=== PATIENT | male | born 1980 | race Caucasian/White ===

== ENCOUNTER 2018-07-16 16:49 | Emergency (ER) | payer BC ==
[2018-07-16] MEDS ORDERED: Sodium Chloride 0.9% 1,000 ML IV ONE (17:30)
[2018-07-16 17:52] LABS: BASO % 0.3 % (0.0-2.0); EOS # 0.1 K/uL (0.0-0.7); EOS % 2.9 % (0.0-4.0); HEMOGLOBIN 15.3 g/dL (12.0-18.0); LYMPH # 0.9 K/uL (1.0-4.3); LYMPH % 16.8 % (20.0-40.0); MEAN CELL VOLUME 86.1 fL (80.0-94.0); MEAN CORPUSCULAR HEMOGLOBIN 29.3 pg (27.0-31.0); MEAN PLATELET VOLUME 7.9 fL (7.2-11.7); MONO # 0.6 K/uL (0.0-0.8); MONO % 11.2 % (0.0-10.0); NEUT # 3.5 K/uL (1.8-7.0); NEUT % 68.8 % (50.0-75.0); NRBC % 0.1 % (0.0-2.0); RBC 5.22 Mil/uL (4.40-5.90); RED CELL DISTRIBUTION WIDTH 13.4 % (11.5-14.5); WHITE BLOOD COUNT 5.1 K/uL (4.8-10.8)
[2018-07-16 18:04] LABS: ALB/GLOB RATIO 1.2 (1.0-2.1); ALBUMIN 3.9 g/dL (3.5-5.0); ALT/SGPT 21 U/L (21-72); AST/SGOT 26 U/L (17-59); BLOOD UREA NITROGEN 8 mg/dL (9-20); GFR NON-AFRICAN AMERICAN > 60
--- NOTE | 2018-07-16 18:06 | C.PDOC ---
History Of Present Illness 38 year old male presents to ED with complaint of intermittent fever for the past 4 days. Patient also complains of cough, sore throat, and headache. Patient denies recent travel and sick contacts. He denies runny nose, nasal congestion, and ear pain. Time Seen by Provider: 07/16/18 16:57 Chief Complaint (Nursing): Fever History Per: Patient History/Exam Limitations: no limitations Onset/Duration Of Symptoms: Days (4), Intermittent Episodes Current Symptoms Are (Timing): Still Present Location Of Pain: Throat, Headache Sick Contacts (Context): None Associated Symptoms: Fever, Sore Throat, Cough. denies: Sputum, Sinus Drainage, Nasal Congestion Ear Symptoms: Bilateral: None Recent travel outside of the [place]: No Past Medical History Reviewed: Historical Data, Nursing Documentation, Vital Signs Vital Signs: Last Vital Signs Temp 102.5 F H 07/16/18 16:52 Pulse 103 H 07/16/18 16:52 Resp 20 07/16/18 16:52 BP 114/78 07/16/18 16:52 Pulse Ox 96 07/16/18 16:52 Primary Care Provider: Non [facility] Provider, - Medical History PMH: No Chronic Diseases Surgical History: No Surg Hx Family History: States: Unknown Family Hx - Social History Hx Alcohol Use: No Hx Substance Use: No Review Of Systems Constitutional: Positive for: Fever. Negative for: Chills, Weakness ENT: Positive for: Throat Pain. Negative for: Ear Pain, Nose Discharge, Nose Congestion Respiratory: Positive for: Cough. Negative for: Sputum Neurological: Positive for: Headache. Negative for: Weakness, Numbness Physical Exam - Physical Exam Appears: Non-toxic, No Acute Distress Skin: Normal Color, Warm, Dry Head: Atraumatic, Normacephalic, Other (2 scabbed over lesions on the lower right cheek, no drainage noted) Eye(s): bilateral: Normal Inspection Ear(s): Bilateral: Normal Nose: Normal, No Discharge Oral Mucosa: Moist Teeth: Normal Dentition Throat: Normal, No Erythema, No Exudate Neck: Normal ROM, No Midline Cervical Tenderness, Supple, Other (no meningeal signs) Lymphatic: No Adenopathy Chest: Symmetrical, No Deformity Cardiovascular: Rhythm Regular, No Murmur Respiratory: No Decreased Breath Sounds, No Accessory Muscle Use, No Rales, No Rhonchi, No Wheezing Gastrointestinal/Abdominal: Bowel Sounds, Soft, No Tenderness, No Distention, No Guarding Extremity: Normal ROM, No Tenderness, Capillary Refill <2 Sec (<2 seconds), No Swelling Extremity: Bilateral: Atraumatic, Normal Color And Temperature, Normal ROM Neurological/Psych: Oriented x3, Normal Speech, Normal Cognition ED Course And Treatment - Laboratory Results Result Diagrams: 07/16/18 17:47 07/16/18 17:47 O2 Sat by Pulse Oximetry: 96 (in RA) Pulse Ox Interpretation: Normal Medical Decision Making Medical Decision Making: Impression: 38 year old male presents to ED with complaint of intermittent fever for the past 4 days. Initial Plan: CMP CBC CXR Flu swab Rapid strep swab throat culture IV fluids Toradol Rapid strep negative. influenza neg. wet read cxr neg. pt feeling bertter/. d/c home with zpak and appropriate doses of tylenol and ibuprofen Patient given discharge flu instructions that that were the closest for the symptoms that he had. Explained to patient that he does not actually have the flu. Disposition Counseled Patient/Family Regarding: Studies Performed, Diagnosis, Need For Followup, Rx Given - Disposition Referrals: [facility] [Outside] Disposition: HOME/ ROUTINE Disposition Time: 18:53 Condition: GOOD Additional Instructions: Please take 1000 mg acetaminophen or 600 mg ibuprofen every 6 hours for pain or fever. Take z-wagner as directed. Follow up with a primary care doctro in a few days. Return for worsening symptoms. Recommend dermatology follow up as well. Prescriptions: Azithromycin [Z-Wagner] 250 mg PO DAILY #6 tab Ibuprofen [Motrin] 600 mg PO TID #30 tab Instructions: Flu, Adult (DC) Forms: [employer] (Indonesian), General Discharge Instructions - Clinical Impression Clinical Impression: Influenza-like illness - PA / DOCK OPERATOR / Resident Statement MD/DO has reviewed & agrees with the documentation as recorded. (Salome Tejada) - Scribe Statement The provider has reviewed the documentation as recorded by the Scribe (Salome Tejada) All medical record entries made by the Scribe were at my direction and personally dictated by me. I have reviewed the chart and agree that the record accurately reflects my personal performance of the history, physical exam, medical decision making, and the department course for this patient. I have also personally directed, reviewed, and agree with the discharge instructions and disposition.
[2018-07-16 18:30] VITALS: BP 102/67; PULSE 94; RESP 16; TEMP 100
[2018-07-16 18:31] LABS: INFLUENZA A B NEGATIVE FOR FLU A/B (NEGATIVE)
[2018-07-16 18:53] VITALS: O2SAT 96
--- NOTE | 2018-07-16 19:18 | RAD ---
Date of service: 07/16/2018 HISTORY: cough fever COMPARISON: No prior. TECHNIQUE: Chest PA and lateral views FINDINGS: LUNGS: No active pulmonary disease. PLEURA: No significant pleural effusion identified. No pneumothorax apparent. CARDIOVASCULAR: No aortic atherosclerotic calcification present. Normal cardiac size. No pulmonary vascular congestion. OSSEOUS STRUCTURES: No significant abnormalities. VISUALIZED UPPER ABDOMEN: Normal. OTHER FINDINGS: None. IMPRESSION: No active disease.
== END 2018-07-16 19:08 | disposition home or self-care (01) ==
LOC: C.ER 16:49
DX: J11.1 Influenza due to unidentified influenza virus with other respiratory manifestations (principal)
CPT/HCPCS: 71046; 80053; 85025; 87070; 87430; 87804; 96361; 96374; 99283; J1885; J7030